=== PATIENT | male | born 1995 | race Caucasian/White ===

== ENCOUNTER 2024-10-14 01:23 | Emergency (ER) | payer SELFPAY ==
[2024-10-14 01:34] VITALS: BP 150/97; BP 160/96; PULSE 100; PULSE 110; RESP 16; TEMP 37; O2SAT 97; O2SAT 98; BMI 29.5
[2024-10-14 02:33] LABS: Amphetamine Screen Urine Not Detected (Not Detect); Barbiturates, Urine Not Detected (Not Detect); Benzodiazepines Screen Urine Not Detected (Not Detect); Buprenorphine Scr Not Detected (Not Detect); Cannabinoid Screen Urine POSITIVE (Not Detect); Cocaine Screen Urine POSITIVE (Not Detect); Fentanyl, urine Not Detected (Not Detect); Methadone Screen, Urine Not Detected (Not Detect); Opiate Screen Urine Not Detected (Not Detect); Oxycodone Screen Urine Not Detected (Not Detect); Phencyclidine Screen Urine Not Detected (Not Detect)
--- NOTE | 2024-10-14 02:40 | ED.PSYCH ---
HPI - Psych General Chief Complaint: Psychiatric Symptoms Stated Complaint: CRISIS Time Seen by Provider: 10/14/24 02:04 Source: patient Mode of arrival: ambulatory Limitations: no limitations History of Present Illness ED Provider: HPI Narrative: Patient has no past medical history of psychiatric issues was at sister's house EMS arrived with PD as somebody called them that patient is suicidal patient denied any elevation denies any depression denies any psych issues does not have any therapist denies any substance abuse except marijuana Related Data Allergies Allergy/AdvReac Type Severity Reaction Status Date / Time No Known Allergies Allergy Verified 10/14/24 01:43 Review of Systems Review of Systems: Yes all other systems are reviewed and are negative [facility] Social History Social History Advance Directives: No Do you have a plan to hurt others: No Plan Physical Exam Vital Signs: Vital Signs: Last Vital Signs Temp 98.6 F 10/14/24 02:44 Pulse 70 10/14/24 02:44 Resp 16 10/14/24 02:44 BP 148/88 H 10/14/24 02:44 Pulse Ox 98 10/14/24 02:44 O2 Del Method Room Air 10/14/24 02:44 BMI result Body Mass Index 29.5 Appearance: Alert. Oriented X3. No acute distress. Eyes: PERRLA, No Nystagmus ENT: Pharynx normal. Oral Mucosa moist Neck: Normal inspection. Neck supple. CVS: Normal heart rate and rhythm. Pulses normal. Respiratory: No respiratory distress. Equal air entry bilateral, no wheezing/rales/rhonchi Abdomen: Soft and nontender. Bowel sounds are present, no mass palpable, no CVA tenderness Skin: Skin warm and dry. Normal skin color. Normal skin turgor. Extremities: No lower extremity edema. No calf tenderness psych; denies any depression denies any SI or HI no hallucination or delusion Neuro: Oriented X 3. No motor deficit. No sensory deficit.No cerebellar signs , cranial nerves II-XII intact Medical Decision Making Medical Decision Making MDM Narrative: Patient with no history of depression or anxiety no history of suicidal attempts in the past smokes marijuana says that is the Ms. communication that is why he is here but feels safe to go home crisis hotline was given to him and discharge the patient with the family Lab Data MDM Lab Attestation statement: I reviewed the patient's lab results. Labs: Lab Results 10/14/24 Range/Units 02:16 Urine Opiates Screen Not Detected (Not Detect) Ur Buprenorphine Scrn Not Detected (Not Detect) ng/mL Ur Oxycodone Screen Not Detected (Not Detect) ng/mL Urine Methadone Screen Not Detected (Not Detect) ng/mL Urine Fentanyl Screen Not Detected (Not Detect) Ur Barbiturates Screen Not Detected (Not Detect) Ur Phencyclidine Scrn Not Detected (Not Detect) Ur Amphetamines Screen Not Detected (Not Detect) U Benzodiazepines Scrn Not Detected (Not Detect) Urine Cocaine Screen POSITIVE H (Not Detect) U Marijuana (THC) Screen POSITIVE H (Not Detect) Discharge Plan Discharge Clinical Impression: Acute anxiety Patient Disposition: Home, Self-Care Instructions: Anxiety (ED) Additional Instructions: Follow with your PCP if any concerns Stop smoking marijuana Your urine was also positive for cocaine Call crisis if any concerns Interventions: [place]-Suicide Risk Severity Scale Last Done: 10/14/24 02:44 ED Discharge Assessment Last Done: 10/14/24 02:44 Discharge Date/Time: 10/14/24 02:48 Print Language: Kazakh
[2024-10-14 02:44] VITALS: BP 148/88; PULSE 70; RESP 16; TEMP 37; O2SAT 98
== END 2024-10-14 02:48 | disposition home or self-care (01) ==
PROVIDERS: Emergency Provider Internal Medicine
DX: F41.9 Anxiety disorder, unspecified (principal); F33.1 Major depressive disorder, recurrent, moderate; F12.90 Cannabis use, unspecified, uncomplicated; Z51.81 Encounter for therapeutic drug level monitoring
CPT/HCPCS: 80307; 99283